=== PATIENT | female | born 1970 | race Caucasian/White ===

== ENCOUNTER → 2018-06-18 | Emergency (ER) | payer OTHER, BC ==
[~2018-06-18] VITALS: Ht 162.6 cm; Wt 122.3 kg
[~2018-06-18] MED LIST: ALDACTONE 25MG25 M1 PO; ALEVE LIQCAPS PO; CLARITIN LIQUI-10 MG PO; FLEXERIL 1010 MG/TAB PO; LIPITOR 80MG80 MG PO; MASON NATURAL1200 MG PO; NATURAL IRON65 MG PO; PAMELOR 10MG10 MG PO; PLAVIX 75MG TAB75 MG PO; PRINIVIL40 MG PO; TOPROL XL100 MG PO
[2018-06-18 15:51] VITALS: BP 161/88; TEMP 97.1
[2018-06-18 17:20] VITALS: PULSE 72
== END ==
LOC: COL.ER 15:50
DX: M54.2 Cervicalgia (principal); R51 Headache; I10 Essential (primary) hypertension; I25.10 Atherosclerotic heart disease of native coronary artery without angina pectoris; E78.5 Hyperlipidemia, unspecified; E66.9 Obesity, unspecified; Z79.02 Long term (current) use of antithrombotics/antiplatelets; Z95.5 Presence of coronary angioplasty implant and graft; Z79.82 Long term (current) use of aspirin; V43.52XA Car driver injured in collision with other type car in traffic accident, initial encounter
CPT/HCPCS: J2360